=== PATIENT | female | born 1955 | race Caucasian/White ===

== ENCOUNTER 2016-06-26 11:00 | Day surgery (SDC) | payer MEDICARE ==
--- NOTE | 2016-06-23 07:54 | HP ---
DATE OF SURGERY: 06/24/2016 ADMISSION DIAGNOSIS: Inadequate access for chemotherapy. ANTICIPATED PROCEDURE: Port placement. 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 She is requiring access for chemotherapy and she presents for such. PAST MEDICAL HISTORY: ALLERGIES: LATEX. MEDICATIONS: Metoprolol, doxycycline, clonidine, methadone. PAST SURGICAL HISTORY: Cholecystectomy. SOCIAL HISTORY: Negative. FAMILY HISTORY: Negative. REVIEW OF SYSTEMS: Negative. PHYSICAL EXAMINATION: VITAL SIGNS: Normal. CHEST: Clear. COR: Regular. ABDOMEN: Healing abdominal incision. IMPRESSION: Gallbladder cancer. PLAN: Access for chemotherapy with Port-A-Cath.
[~2016-06-26 11:00] MED LIST: CEFAZOLIN 2 GM-D5W BAG** 50 ML IV ONE; Lactated Ringers 1,000 ML IV ONE; Lactated Ringers 1,000 ML IV SCH; XYLOCAINE 1% HCL 20 ML MDV ONE
[2016-06-26] MEDS ORDERED: Lactated Ringers 0 ML IV ONE (11:13)
[2016-06-26] MEDS ORDERED: CEFAZOLIN 2 GM-D5W BAG** 50 ML IV ONE (11:23)
--- NOTE | 2016-06-26 13:55 | XRAY ---
Indication: Port placement. Intraoperative fluoroscopy was provided for 2 seconds. 3 digital spot images submitted for interpretation demonstrates a left-sided Port-A-Cath with the tip projecting right of midline presumed in the SVC. Correlate with intraoperative findings/report.
[2016-06-26] MEDS ORDERED: Ketamine HCl 50 MG/ML IJ ONE (13:56)
[2016-06-26] MEDS ORDERED: DIPRIVAN 200 MG/20 ML IV ONE (13:56)
[2016-06-26 14:58] VITALS: BP 144/83; PULSE 57; O2SAT 97
--- NOTE | 2016-06-26 15:11 | OP ---
SURGERY DATE/TIME: 06/26/2016 1225 PREOPERATIVE DIAGNOSIS: Inadequate access for chemotherapy. POSTOPERATIVE DIAGNOSIS: Inadequate access for chemotherapy. PROCEDURE: Left subclavian - superior vena cava - atrial Port-A-Cath. SURGEON: Manpreet Carney M.D. ANESTHESIA: MAC. COMPLICATIONS: None. CONDITION: Stable. INDICATION: A 61 year-old requiring access. DESCRIPTION OF PROCEDURE: Routine prep and drape. MAC sedation provided. 0.25% Marcaine. The seeker needle was placed. Wire was placed. Catheter was tunneled. Port site fashioned. Port secured with 3-0 Prolene. Catheter 24 cm. Good aspiration low pressure venous blood. Flushed with heparinized saline, secured with 3-0 Prolene, 3-0 Vicryl, 4-0 Vicryl and Steri-Strips. The patient tolerated the procedure satisfactorily. Fluoroscopic images were satisfactory.
== END 2016-06-26 14:41 | disposition home or self-care (01) ==
LOC: SDC 11:00
PROVIDERS: ATTEND Surgery
PROC: 02HV33Z Insertion of Infusion Device into Superior Vena Cava, Percutaneous Approach (ICD-10-PCS; principal; 2016-06-26)
DX: Z95.828 Presence of other vascular implants and grafts (principal); C23 Malignant neoplasm of gallbladder
CPT/HCPCS: 00532; 77001; C1788; J0690; J1642; J2704

== ENCOUNTER 2016-09-25 17:54 | Inpatient (IN) | payer MEDICARE ==
[2016-09-25] MEDS: Toprol Xl 100 MG PO SCH (21:04)
[2016-09-25] MEDS: Catapres 0.1 MG PO SCH (21:04)
[2016-09-25] MEDS: Zanaflex 4 MG PO SCH (21:04)
[2016-09-25] MEDS: DOLOPHINE 10MG Tablet PO SCH (21:04)
[2016-09-25] MEDS: Ambien 10 MG PO SCH (21:04)
[2016-09-26] MEDS: ZOFRAN ODT 4 MG PO PRN ×2 (08:11→15:28)
[2016-09-26] MEDS: DOLOPHINE 10MG Tablet PO SCH ×3 (09:20→21:21)
[2016-09-26] MEDS: Prozac 20 MG PO SCH (09:20)
[2016-09-26] MEDS: Catapres 0.1 MG PO SCH ×2 (09:20→21:20)
[2016-09-26] MEDS: Toprol Xl 100 MG PO SCH ×2 (09:20→21:20)
[2016-09-26] MEDS: Zanaflex 4 MG PO SCH ×3 (09:20→21:20)
--- NOTE | 2016-09-26 18:10 | PCM.HP ---
History of Present Illness - Chief Complaint Chief Complaint: deconditioning r/t fall History of Present Illness: is a 61 year old female who was diagnosed with gallbladder cancer in Jun 2016. She had c ome to [facility] to get her gallbladder out and she was found to have cancer. Treated at the [facility] in [place] with radiation and chemotherapy. She did get some radiation morgan and on the 15th day of chemotherapy started having nausea and vomiting. She was in the hospital for 8 days and when she came home she got progressively weaker. She has previously been in [facility]. She had a fall and has been set back in her rehab, with increasing weakness ever since. She comes to [facility] for therapy in a swing bed. - Review of Systems Ears, Nose, & Throat: Other (slow speaking) Cardiac: Other (hx HTN) Abdominal/Gastrointestinal: Nausea (daily, starts in the morning.), Diarrhea (2 d ago) Musculoskeletal: Neck Pain (chronic; s/p 2 neck surgeries post traumatic fracture years ago; on disability) Skin: Skin Lesions (3 areas of radiation burn on abdomen. 1 area superior gluteal cleft.) All Other Systems: Reviewed and Negative Medications & Allergies Home Medications: Home Medication List Methadone HCl 10 mg [DOLOPHINE 10MG Tablet] 10 mg PO TID 06/24/16 [ History Confirmed 09/25/16] Metoprolol Succinate 100 mg [Toprol Xl 100 MG] 100 mg PO BID 06/24/16 [ History Confirmed 09/25/16] Oxycodone / APAP 10/325 mg [Oxycodone-Acetaminophen 10-325] 1 tab PO QID 06/24/16 [History Confirmed 09/25/16] Zolpidem Tartrate [Ambien] 10 mg PO HS 06/24/16 [History Confirmed 09/25/16] Tizanidine HCl 4 mg PO TID 06/26/16 [History Confirmed 09/25/16] Clonidine HCl 0.1 mg PO BID 09/25/16 [History Confirmed 09/25/16] Fluoxetine HCl 20 mg PO DAILY 09/25/16 [History Confirmed 09/25/16] Ondansetron HCl [Zofran] 4 mg PO Q6HPRN PRN 09/25/16 [History Confirmed 09/25/16 ] Allergies/Adverse Reactions: Allergies Allergy/AdvReac Type Severity Reaction Status Date / Time bee pollen Allergy Verified 09/25/16 18:20 latex Allergy Verified 09/25/16 18:20 - Past Medical History Past Medical History: Yes Neurological History: No Pertinent History ENT History: No Pertinent History Cardiac History: Hypertension Respiratory History: No Pertinent History Endocrine Medical History: No Pertinent History Musculoskelatal History: No Pertinent History GI Medical History: Gallbladder Disease, Other History: No Pertinent History Pyscho-Social History: No Pertinent History Reproductive Disorders: Endometriosis Comment: chronic neck pain; gallbladder CA - Female History Are you now?: No - Past Surgical History Past Surgical History: Yes Neuro Surgical History: No Pertinent History Cardiac History: No Pertinent History Respiratory Surgery: No Pertinent History GI Surgical History: Cholecystectomy, Other Genitourinary Surgical Hx: No Pertinent History Musculskeletal Surgical Hx: Orthopedic Surgery Female Surgical History: Hysterectomy Other Surgical History: neck surgery x 2, Dx of gall bladder cancer May 2016 - Social History Smoking Status: Never smoker Exposure to second hand smoke: No Alcohol: None Drug Use: none - Physical Exam Vital Signs: Vital Signs - 24 hr Temp Pulse Resp BP Pulse Ox 09/26/16 16:00 98.5 F 54 L 17 182/86 95 09/26/16 11:03 60 18 95 09/26/16 07:53 97.5 F 56 L 16 180/79 94 L 09/25/16 20:00 98.2 F 60 20 166/84 94 L 09/25/16 18:16 98.2 F 60 20 166/84 94 L General Appearance: no apparent distress Neurologic Exam: alert, oriented x 3, cooperative, dysarthria (mild) Eye Exam: eyes nml inspection Neck Exam: normal inspection, non-tender, No lymphadenopathy Respiratory Exam: normal breath sounds, lungs clear, No crackles/rales, No rhonchi, No wheezing Cardiovascular Exam: regular rate/rhythm, normal heart sounds, No murmur Gastrointestinal/Abdomen Exam: soft, normal bowel sounds, other (3 square areas of skin, largest approx 3x3 cm, with dark discoloration and some peeling skin), No tenderness Back Exam: normal inspection Extremity Exam: pedal edema (trace LE edema) Skin Exam: warm, dry Results - Other Procedures and Tests Respiratory Therapy 04/21/17 11:03 Incentive Spirometry Assessmen TID Assessment/Plan (1) Muscular deconditioning Current Visit: Yes Status: Acute Assessment & Plan: Here for therapy. Code(s): R29.898 - OTH SYMPTOMS AND SIGNS INVOLVING THE MUSCULOSKELETAL SYSTEM (2) Leg edema Current Visit: Yes Status: Acute Assessment & Plan: Had lasix x 1 yesterday. Very mild today. Will observe. Code(s): R60.0 - LOCALIZED EDEMA (3) Nausea and vomiting Current Visit: No Status: Chronic Assessment & Plan: will give scheduled zofran q8h for the next week and see if it helps. Code(s): R11.2 - NAUSEA WITH VOMITING, UNSPECIFIED (4) Chronic neck pain Current Visit: No Status: Chronic Assessment & Plan: sees Dr. Gallo for pain management. Will continue meds here. Code(s): M54.2 - CERVICALGIA; G89.29 - OTHER CHRONIC PAIN
[2016-09-26] MEDS: OXYCODONE-ACETAMINOPHEN 10-325 PO PRN (21:20)
[2016-09-26] MEDS: Ambien 10 MG PO SCH (21:21)
[2016-09-27] MEDS: OXYCODONE-ACETAMINOPHEN 10-325 PO PRN (08:50)
[2016-09-27] MEDS: Zanaflex 4 MG PO SCH ×3 (08:50→21:40)
[2016-09-27] MEDS: Prozac 20 MG PO SCH (08:52)
[2016-09-27] MEDS: Catapres 0.1 MG PO SCH ×2 (08:52→21:40)
[2016-09-27] MEDS: DOLOPHINE 10MG Tablet PO SCH ×3 (08:52→21:40)
[2016-09-27] MEDS: Toprol Xl 100 MG PO SCH ×2 (08:53→21:40)
[2016-09-27 10:24] LABS: Mean Cell Volume 89.2 fl (78-100); Mean Corpuscular Hemoglobin 29.9 pg (26-32); Mean Platelet Volume 9.9 fl (6-9.5); Platelet Count 98 K/mm3 (150-450); Red Blood Count 4.08 M/mm3 (4.1-5.4); Red Cell Distribution Width 14.8 % (11.5-14.0)
[2016-09-27 10:35] LABS: ALBUMIN 2.6 g/dL (3.4-5.0); ALKALINE PHOSPHATASE 105 U/L (46-116); ANION GAP 12.8 MEQ/L (5-15); BILIRUBIN,TOTAL 1.6 mg/dL (0.2-1.0); BLOOD UREA NITROGEN 6 mg/dL (9-20); CHLORIDE 105 mEq/L (98-107); Carbon Dioxide 27.3 mEq/L (21-32); Glucose 126 MG/DL (70-110); Potassium 3.3 mEq/L (3.5-5.1); SGOT/AST 41 U/L (15-37); SGPT/ALT 19 U/L (12-78); SODIUM 142 mEq/L (136-145)
[2016-09-27 11:39] LABS: Eosinophil 2 % (0.00-3.0); Platelet Estimate DECREASED (NORMAL); Total Cells Counted 100; Toxic Granulation 1+
[2016-09-27 11:40] LABS: ANISOCYTOSIS 1+
[2016-09-27] MEDS: Ambien 10 MG PO SCH (21:40)
[2016-09-28] MEDS: Zanaflex 4 MG PO SCH ×3 (10:15→22:17)
[2016-09-28] MEDS: Prozac 20 MG PO SCH (10:15)
[2016-09-28] MEDS: Toprol Xl 100 MG PO SCH ×2 (10:16→22:17)
[2016-09-28] MEDS: Catapres 0.1 MG PO SCH ×2 (10:16→22:17)
[2016-09-28] MEDS: DOLOPHINE 10MG Tablet PO SCH ×3 (10:16→22:17)
[2016-09-28] MEDS: ZOFRAN ODT 4 MG PO PRN (14:21)
[2016-09-28] MEDS: Ambien 10 MG PO SCH (22:17)
[2016-09-28] MEDS: Colace 100 MG PO SCH (22:17)
[2016-09-29 05:39] LABS: Mean Cell Volume 90.2 fl (78-100); Mean Platelet Volume 9.8 fl (6-9.5); Platelet Count 87 K/mm3 (150-450); Red Blood Count 3.78 M/mm3 (4.1-5.4); White Blood Count 5.4 K/mm3 (4.0-10.5)
[2016-09-29 05:53] LABS: Mean Corpuscular Hemoglobin 30.1 pg (26-32)
[2016-09-29 06:00] LABS: ALBUMIN 2.3 g/dL (3.4-5.0); ALKALINE PHOSPHATASE 96 U/L (46-116); ANION GAP 11.1 MEQ/L (5-15); BILIRUBIN,TOTAL 1.9 mg/dL (0.2-1.0); BLOOD UREA NITROGEN 7 mg/dL (9-20); CHLORIDE 105 mEq/L (98-107); Carbon Dioxide 27.6 mEq/L (21-32); Glucose 114 MG/DL (70-110); Potassium 3.5 mEq/L (3.5-5.1); SGOT/AST 41 U/L (15-37); SGPT/ALT 15 U/L (12-78); SODIUM 140 mEq/L (136-145); Total Protein 5.4 gm/dL (6.4-8.2)
[2016-09-29 06:13] LABS: ANISOCYTOSIS 1+; Poikilocytosis 1+; Total Cells Counted 100
[2016-09-29 06:14] LABS: Platelet Estimate NORMAL (NORMAL); Polychromasia 1+
[2016-09-29] MEDS: OXYCODONE-ACETAMINOPHEN 10-325 PO PRN ×2 (07:45→19:42)
--- NOTE | 2016-09-29 08:05 | PCM.NOTE ---
Date and Time: 09/29/16 08 Subjective Assessment: Not eating well per . Sleeping well. He states she can use her hands better since admission. She worked with PT yesterday for about an hour. Unable to tolerate LUIS M hose. - Review of Systems Constitutional: No Fever Abdominal/Gastrointestinal: Appetite Changes Objective Exam General Appearance: no apparent distress Neurologic Exam: alert, oriented x 3, cooperative, other (slow speech as on previous exam) Skin Exam: normal color, warm, dry Respiratory Exam: normal breath sounds, lungs clear, No crackles/rales, No rhonchi, No wheezing Cardiovascular Exam: regular rate/rhythm, normal heart sounds, No murmur Gastrointestinal/Abdomen Exam: soft, No tenderness Extremity Exam: pedal edema (1+ pretibial edema bilat) Back Exam: normal inspection OBJECTIVE DATA Vital Signs: Vital Signs - 24 hr Temp Pulse Resp BP Pulse Ox 09/29/16 06:54 93 L 09/28/16 19:50 58 L 15 96 09/28/16 19:46 98.9 F 63 14 113/53 95 09/28/16 16:36 93 L 09/28/16 08:11 94 L Pain Assessment - Last Documented Pain Intensity 9 Pain Scale Used 0-10 Pain Scale Intake and Output: Intake & Output 09/26/16 09/27/16 09/28/16 09/29/16 11:59 11:59 11:59 11:59 Intake Total 300 1640 320 240 Output Total 600 200 Balance -300 1440 320 240 Weight 95.935 kg 95.935 kg Lab Results: Lab Results-Last 24 Hours 09/29/16 09/29/16 09/29/16 Range/Units 05:14 05:14 05:14 WBC 5.4 (4.0-10.5) K/mm3 RBC 3.78 L (4.1-5.4) M/mm3 Hgb 11.4 L (12.0-16.0) gm/dl Hct 34.1 L (35-47) % MCV 90.2 (78-100) fl MCH 30.1 (26-32) pg MCHC 33.4 (32-36) g/dl RDW 15.0 H (11.5-14.0) % Plt Count 87 L (150-450) K/mm3 MPV 9.8 H (6-9.5) fl Segmented Neutrophils 81 H (36.0-66.0) % Lymphocytes (Manual) 17 L (24-44) % Monocytes (Manual) 2 (0.0-12.0) % Platelet Estimate NORMAL (NORMAL) Polychromasia 1+ Poikilocytosis 1+ Anisocytosis 1+ Sodium 140 (136-145) mEq/L Potassium 3.5 (3.5-5.1) mEq/L Chloride 105 (98-107) mEq/L Carbon Dioxide 27.6 (21-32) mEq/L Anion Gap 11.1 (5-15) MEQ/L BUN 7 L (9-20) mg/dL Creatinine 0.72 (0.55-1.30) mg/dl Estimated GFR > 60 ML/MIN Glucose 114 H (70-110) MG/DL Hemoglobin A1c 5.7 (4.5-6.2) Calcium 8.2 L (8.5-10.1) mg/dL Total Bilirubin 1.9 H (0.2-1.0) mg/dL AST 41 H (15-37) U/L ALT 15 (12-78) U/L Alkaline Phosphatase 96 (46-116) U/L Serum Total Protein 5.4 L (6.4-8.2) gm/dL Albumin 2.3 L (3.4-5.0) g/dL Assessment/Plan (1) Muscular deconditioning Current Visit: Yes Status: Acute Assessment & Plan: Started PT yesterday. Code(s): R29.898 - OTH SYMPTOMS AND SIGNS INVOLVING THE MUSCULOSKELETAL SYSTEM (2) Leg edema Current Visit: Yes Status: Acute Qualifiers: Laterality: bilateral Qualified Code(s): R60.0 - Localized edema Assessment & Plan: lasix as needed. Code(s): R60.0 - LOCALIZED EDEMA (3) Nausea and vomiting Current Visit: No Status: Chronic Assessment & Plan: no complaint of this morning. On zofran q6h prn. Code(s): R11.2 - NAUSEA WITH VOMITING, UNSPECIFIED (4) Chronic neck pain Current Visit: No Status: Chronic Code(s): M54.2 - CERVICALGIA; G89.29 - OTHER CHRONIC PAIN (5) Total bilirubin, elevated Current Visit: Yes Status: Acute Assessment & Plan: 1.6 on Ruben and 1.9 today. I will notify her oncologist, Dr. Marte. Code(s): R17 - UNSPECIFIED JAUNDICE (6) DVT prophylaxis Current Visit: Yes Status: Acute Code(s): [id number] - (7) Gallbladder cancer Current Visit: Yes Status: Chronic Assessment & Plan: Sees specialists at [facility]. Done with her current treatment regimen.
[2016-09-29] MEDS: Prozac 20 MG PO SCH (09:12)
[2016-09-29] MEDS: DOLOPHINE 10MG Tablet PO SCH ×3 (09:12→22:07)
[2016-09-29] MEDS: Zanaflex 4 MG PO SCH ×3 (09:13→22:07)
[2016-09-29] MEDS: ENOXAPARIN SODIUM SQ SCH (09:16)
[2016-09-29] MEDS: Catapres 0.1 MG PO SCH ×2 (09:59→22:07)
[2016-09-29] MEDS: Toprol Xl 100 MG PO SCH ×2 (10:00→22:07)
[2016-09-29] MEDS: Colace 100 MG PO SCH (22:07)
[2016-09-29] MEDS: Ambien 10 MG PO SCH (22:07)
[2016-09-30 05:51] LABS: Mean Cell Volume 90.9 fl (78-100); Mean Platelet Volume 10.1 fl (6-9.5); Platelet Count 85 K/mm3 (150-450); Red Blood Count 3.73 M/mm3 (4.1-5.4); Red Cell Distribution Width 15.1 % (11.5-14.0); White Blood Count 3.5 K/mm3 (4.0-10.5)
[2016-09-30 06:04] LABS: Mean Corpuscular Hemoglobin 29.7 pg (26-32)
[2016-09-30 06:05] LABS: ALBUMIN 2.2 g/dL (3.4-5.0); ALKALINE PHOSPHATASE 92 U/L (46-116); ANION GAP 8.4 MEQ/L (5-15); BILIRUBIN,TOTAL 1.3 mg/dL (0.2-1.0); BLOOD UREA NITROGEN 6 mg/dL (9-20); CHLORIDE 108 mEq/L (98-107); Carbon Dioxide 29.3 mEq/L (21-32); Glucose 109 MG/DL (70-110); Potassium 3.6 mEq/L (3.5-5.1); SGOT/AST 41 U/L (15-37); SGPT/ALT 15 U/L (12-78); SODIUM 142 mEq/L (136-145); Total Protein 5.4 gm/dL (6.4-8.2)
[2016-09-30] MEDS: OXYCODONE-ACETAMINOPHEN 10-325 PO PRN ×3 (06:05→20:35)
[2016-09-30] MEDS: Toprol Xl 100 MG PO SCH ×2 (09:30→21:16)
[2016-09-30] MEDS: Prozac 20 MG PO SCH (09:30)
[2016-09-30] MEDS: DOLOPHINE 10MG Tablet PO SCH ×2 (09:30→15:17)
[2016-09-30] MEDS: Zanaflex 4 MG PO SCH ×3 (09:30→21:16)
[2016-09-30] MEDS: ENOXAPARIN SODIUM SQ SCH (09:31)
[2016-09-30] MEDS: Catapres 0.1 MG PO SCH ×2 (09:31→21:16)
[2016-09-30 10:38] LABS: Total Cells Counted 100
[2016-09-30 10:39] LABS: ANISOCYTOSIS 1+; Platelet Estimate NORMAL (NORMAL); Poikilocytosis 1+; Polychromasia 1+
[2016-09-30] MEDS: Ambien 10 MG PO SCH (21:16)
[2016-09-30] MEDS: Colace 100 MG PO SCH (21:16)
[2016-10-01] MEDS: Catapres 0.1 MG PO SCH ×2 (08:51→21:40)
[2016-10-01] MEDS: ENOXAPARIN SODIUM SQ SCH (08:51)
[2016-10-01] MEDS: Zanaflex 4 MG PO SCH ×3 (08:51→21:40)
[2016-10-01] MEDS: Prozac 20 MG PO SCH (08:51)
[2016-10-01] MEDS: Toprol Xl 100 MG PO SCH ×2 (08:51→21:40)
[2016-10-01] MEDS: DOLOPHINE 10MG Tablet PO SCH ×3 (09:51→21:41)
--- NOTE | 2016-10-01 10:20 | PCM.NOTE ---
Date and Time: 10/01/16 1015 Subjective Assessment: She is still feeling very weak. Attila po but still eating less than usual. Notes she has a hard time grasping and holding things as well. - Review of Systems Constitutional: Weakness, No Fever Objective Exam General Appearance: no apparent distress Neurologic Exam: alert, oriented x 3, cooperative, other (slow speech as usual) Skin Exam: normal color, warm, dry Respiratory Exam: normal breath sounds, lungs clear, No crackles/rales, No rhonchi, No wheezing Cardiovascular Exam: regular rate/rhythm, normal heart sounds, No murmur Extremity Exam: pedal edema (1+ pretibial edema bilat) Back Exam: normal inspection OBJECTIVE DATA Vital Signs: Vital Signs - 24 hr Temp Pulse Resp BP Pulse Ox 10/01/16 07:52 98.6 F 60 18 141/67 91 L 10/01/16 07:29 66 16 95 09/30/16 22:25 69 16 93 L 09/30/16 20:23 98.2 F 58 L 14 134/93 92 L Pain Assessment - Last Documented Pain Intensity 6 Pain Scale Used 0-10 Pain Scale Intake and Output: Intake & Output 09/28/16 09/29/16 09/30/16 10/01/16 11:59 11:59 11:59 11:59 Intake Total 320 240 560 760 Balance 320 240 560 760 Lab Results: Lab Results-Last 24 Hours 09/30/16 09/30/16 Range/Units 05:37 20:25 WBC 3.5 L (4.0-10.5) K/mm3 RBC 3.73 L (4.1-5.4) M/mm3 Hgb 11.1 L (12.0-16.0) gm/dl Hct 33.9 L (35-47) % MCV 90.9 (78-100) fl MCH 29.7 (26-32) pg MCHC 32.7 (32-36) g/dl RDW 15.1 H (11.5-14.0) % Plt Count 85 L (150-450) K/mm3 MPV 10.1 H (6-9.5) fl Segmented Neutrophils 77 H (36.0-66.0) % Lymphocytes (Manual) 18 L (24-44) % Monocytes (Manual) 5 (0.0-12.0) % Platelet Estimate NORMAL (NORMAL) Polychromasia 1+ Poikilocytosis 1+ Anisocytosis 1+ Ammonia 69 H (11-32) MMOL/l Assessment/Plan (1) Muscular deconditioning Current Visit: Yes Status: Acute Assessment & Plan: post chemotherapy. Unsure what her degree of recovery will ultimately be but I think her rehab potential is fair to good and certainly we won't know for sure for several months or more. Code(s): R29.898 - OTH SYMPTOMS AND SIGNS INVOLVING THE MUSCULOSKELETAL SYSTEM (2) Leg edema Current Visit: Yes Status: Chronic Qualifiers: Laterality: bilateral Qualified Code(s): R60.0 - Localized edema Code(s): R60.0 - LOCALIZED EDEMA (3) Nausea and vomiting Current Visit: No Status: Resolved Code(s): R11.2 - NAUSEA WITH VOMITING, UNSPECIFIED (4) Chronic neck pain Current Visit: No Status: Chronic Code(s): M54.2 - CERVICALGIA; G89.29 - OTHER CHRONIC PAIN (5) Total bilirubin, elevated Current Visit: Yes Status: Acute Assessment & Plan: improved today. Will check her PT/INR and recheck ammonia in the morning. I spoke with her oncologist yesterday, he would plan at this point to do a liver ultrasound outpatient. Code(s): R17 - UNSPECIFIED JAUNDICE (6) Pancytopenia Current Visit: Yes Status: Acute Assessment & Plan: New yesterday. She has been thrombocytopenic and mildly anemic since admission. recheck in the morning. Code(s): D61.818 - OTHER PANCYTOPENIA (7) DVT prophylaxis Current Visit: Yes Status: Acute Code(s): [id number] - (8) Gallbladder cancer Current Visit: Yes Status: Chronic
[2016-10-01] MEDS: LACTULOSE 20 GM/30ML UD CUP PO SCH ×2 (10:52→21:41)
[2016-10-01] MEDS: ZOFRAN ODT 4 MG PO PRN (13:45)
[2016-10-01] MEDS: Mylicon 80MG PO PRN (16:07)
[2016-10-01] MEDS: Colace 100 MG PO SCH (21:40)
[2016-10-01] MEDS: Ambien 10 MG PO SCH (21:41)
[2016-10-02 06:10] LABS: BASOPHIL % 0.5 % (0.0-0.4); Eosinophil % 2.6 % (0.00-5.0); Granulocytes % 67.2 % (36.0-66.0); Lymphocytes % 16.8 % (24.0-44.0); Mean Cell Volume 91.5 fl (78-100); Mean Corpuscular Hemoglobin 30.2 pg (26-32); Mean Platelet Volume 9.9 fl (6-9.5); Monocytes % 12.9 % (0.0-12.0); Platelet Count 101 K/mm3 (150-450); Red Blood Count 3.64 M/mm3 (4.1-5.4); White Blood Count 3.9 K/mm3 (4.0-10.5)
[2016-10-02 06:26] LABS: ALBUMIN 2.2 g/dL (3.4-5.0); ALKALINE PHOSPHATASE 102 U/L (46-116); ANION GAP 8.6 MEQ/L (5-15); BILIRUBIN,TOTAL 1.3 mg/dL (0.2-1.0); BLOOD UREA NITROGEN 6 mg/dL (9-20); CHLORIDE 106 mEq/L (98-107); Glucose 98 MG/DL (70-110); Potassium 3.6 mEq/L (3.5-5.1); SGOT/AST 45 U/L (15-37); SGPT/ALT 16 U/L (12-78); SODIUM 140 mEq/L (136-145); Total Protein 5.5 gm/dL (6.4-8.2)
[2016-10-02 06:38] LABS: INR 1.59 (0.8-3.0); PROTIME 17.6 SECONDS (9.95-12.35)
[2016-10-02] MEDS: OXYCODONE-ACETAMINOPHEN 10-325 PO PRN ×2 (07:50→20:44)
[2016-10-02] MEDS: ZOFRAN ODT 4 MG PO PRN (07:57)
[2016-10-02] MEDS: Prozac 20 MG PO SCH (10:08)
[2016-10-02] MEDS: DOLOPHINE 10MG Tablet PO SCH ×3 (10:09→20:39)
[2016-10-02] MEDS: LACTULOSE 20 GM/30ML UD CUP PO SCH ×2 (10:09→20:36)
[2016-10-02] MEDS: ENOXAPARIN SODIUM SQ SCH (10:09)
[2016-10-02] MEDS: Zanaflex 4 MG PO SCH ×3 (10:09→20:38)
[2016-10-02] MEDS: Mylicon 80MG PO PRN ×2 (10:15→14:49)
[2016-10-02] MEDS: Catapres 0.1 MG PO SCH ×2 (10:22→20:44)
[2016-10-02] MEDS: Toprol Xl 100 MG PO SCH ×2 (10:22→20:39)
[2016-10-02] MEDS: Colace 100 MG PO SCH (20:39)
[2016-10-02] MEDS: Ambien 10 MG PO SCH (20:39)
[2016-10-03] MEDS: ZOFRAN ODT 4 MG PO PRN (07:43)
[2016-10-03] MEDS: Mylicon 80MG PO PRN (08:05)
[2016-10-03] MEDS: Zanaflex 4 MG PO SCH ×3 (10:36→22:10)
[2016-10-03] MEDS: Prozac 20 MG PO SCH (10:37)
[2016-10-03] MEDS: Toprol Xl 100 MG PO SCH ×2 (10:37→22:10)
[2016-10-03] MEDS: DOLOPHINE 10MG Tablet PO SCH ×3 (10:37→22:09)
[2016-10-03] MEDS: ENOXAPARIN SODIUM SQ SCH (10:37)
[2016-10-03] MEDS: Catapres 0.1 MG PO SCH ×2 (10:37→22:09)
[2016-10-03] MEDS: LACTULOSE 20 GM/30ML UD CUP PO SCH ×2 (13:20→22:09)
[2016-10-03] MEDS: OXYCODONE-ACETAMINOPHEN 10-325 PO PRN (17:21)
[2016-10-03] MEDS: Ambien 10 MG PO SCH (22:09)
[2016-10-03] MEDS: Colace 100 MG PO SCH (22:09)
[2016-10-04] MEDS: ZOFRAN ODT 4 MG PO PRN ×2 (08:08→15:12)
[2016-10-04] MEDS: Zanaflex 4 MG PO SCH ×3 (09:12→22:01)
[2016-10-04] MEDS: DOLOPHINE 10MG Tablet PO SCH ×3 (09:12→22:00)
[2016-10-04] MEDS: Catapres 0.1 MG PO SCH ×2 (09:12→22:01)
[2016-10-04] MEDS: ENOXAPARIN SODIUM SQ SCH (09:12)
[2016-10-04] MEDS: Toprol Xl 100 MG PO SCH ×2 (09:12→22:00)
[2016-10-04] MEDS: LACTULOSE 20 GM/30ML UD CUP PO SCH ×2 (09:12→22:01)
[2016-10-04] MEDS: Prozac 20 MG PO SCH (09:12)
[2016-10-04] MEDS: Mylicon 80MG PO PRN (17:21)
[2016-10-04] MEDS: PATIENT OWN MEDICATION PO PRN (17:22)
[2016-10-04] MEDS: OXYCODONE-ACETAMINOPHEN 10-325 PO PRN (19:48)
[2016-10-04] MEDS: Colace 100 MG PO SCH (22:01)
[2016-10-04] MEDS: Ambien 10 MG PO SCH (22:01)
[2016-10-05] MEDS: ZOFRAN ODT 4 MG PO PRN (08:08)
[2016-10-05] MEDS: OXYCODONE-ACETAMINOPHEN 10-325 PO PRN (08:09)
[2016-10-05] MEDS: Catapres 0.1 MG PO SCH ×2 (09:31→22:35)
[2016-10-05] MEDS: ENOXAPARIN SODIUM SQ SCH (09:31)
[2016-10-05] MEDS: DOLOPHINE 10MG Tablet PO SCH ×3 (09:31→22:36)
[2016-10-05] MEDS: LACTULOSE 20 GM/30ML UD CUP PO SCH ×2 (09:31→22:28)
[2016-10-05] MEDS: Prozac 20 MG PO SCH (09:31)
[2016-10-05] MEDS: Toprol Xl 100 MG PO SCH ×2 (09:31→22:35)
[2016-10-05] MEDS: Zanaflex 4 MG PO SCH ×3 (09:36→22:36)
[2016-10-05] MEDS: PATIENT OWN MEDICATION PO PRN (15:16)
[2016-10-05] MEDS: Ambien 10 MG PO SCH (22:35)
[2016-10-05] MEDS: Colace 100 MG PO SCH (22:36)
[2016-10-06] MEDS: ZOFRAN ODT 4 MG PO PRN (08:06)
--- NOTE | 2016-10-06 08:43 | PCM.NOTE ---
Date and Time: 10/06/16 0840 Subjective Assessment: Still c/o a.m. vomiting, worse for the past 3 days. Attila po otherwise. She is walking better. - Review of Systems Constitutional: No Fever Abdominal/Gastrointestinal: Nausea, Vomiting Objective Exam General Appearance: no apparent distress Neurologic Exam: alert, oriented x 3, cooperative Skin Exam: normal color, warm, dry Respiratory Exam: normal breath sounds, lungs clear, No crackles/rales, No rhonchi, No wheezing Cardiovascular Exam: regular rate/rhythm, normal heart sounds, No murmur Extremity Exam: pedal edema (trace LE edema bilat) Back Exam: normal inspection OBJECTIVE DATA Vital Signs: Vital Signs - 24 hr Temp Pulse Resp BP Pulse Ox 10/06/16 07:40 97.8 F 56 L 20 129/61 95 10/05/16 20:00 98.0 F 54 L 17 147/67 92 L Pain Assessment - Last Documented Pain Intensity 10 [facility] Intake and Output: Intake & Output 10/03/16 10/04/16 10/05/16 10/06/16 11:59 11:59 11:59 11:59 Intake Total 680 420 580 920 Balance 680 420 580 920 Assessment/Plan (1) Muscular deconditioning Current Visit: Yes Status: Acute Assessment & Plan: She is improving, still needs to work on walking, balance, senior accounting associate and upper extremity strength with a goal of being able to perform ADLs at home independently. This may take several weeks to months, and the extent of her full recovery is unknown at this time. Would benefit from senior living rehab. Code(s): R29.898 - OTH SYMPTOMS AND SIGNS INVOLVING THE MUSCULOSKELETAL SYSTEM (2) Leg edema Current Visit: Yes Status: Chronic Qualifiers: Laterality: bilateral Qualified Code(s): R60.0 - Localized edema Code(s): R60.0 - LOCALIZED EDEMA (3) Nausea and vomiting Current Visit: No Status: Resolved Qualifiers: Vomiting type: cyclical vomiting Assessment & Plan: late effect of chemotherapy. Try zantac in the p.m. Code(s): R11.2 - NAUSEA WITH VOMITING, UNSPECIFIED (4) Chronic neck pain Current Visit: No Status: Chronic Code(s): M54.2 - CERVICALGIA; G89.29 - OTHER CHRONIC PAIN (5) Total bilirubin, elevated Current Visit: Yes Status: Acute Assessment & Plan: recheck today Code(s): R17 - UNSPECIFIED JAUNDICE (6) Pancytopenia Current Visit: Yes Status: Acute Assessment & Plan: recheck today Code(s): D61.818 - OTHER PANCYTOPENIA (7) DVT prophylaxis Current Visit: Yes Status: Acute Code(s): [id number] - (8) Gallbladder cancer Current Visit: Yes Status: Chronic
[2016-10-06] MEDS: Toprol Xl 100 MG PO SCH ×2 (08:54→21:55)
[2016-10-06] MEDS: Zanaflex 4 MG PO SCH ×3 (08:54→21:55)
[2016-10-06] MEDS: Prozac 20 MG PO SCH (08:54)
[2016-10-06] MEDS: LACTULOSE 20 GM/30ML UD CUP PO SCH ×2 (08:54→21:57)
[2016-10-06] MEDS: Catapres 0.1 MG PO SCH ×2 (08:54→21:56)
[2016-10-06] MEDS: ENOXAPARIN SODIUM SQ SCH (08:54)
[2016-10-06 09:02] LABS: Mean Cell Volume 92.7 fl (78-100); Mean Corpuscular Hemoglobin 30.3 pg (26-32); Mean Platelet Volume 9.8 fl (6-9.5); Platelet Count 96 K/mm3 (150-450); Red Blood Count 3.56 M/mm3 (4.1-5.4); Red Cell Distribution Width 14.9 % (11.5-14.0)
[2016-10-06 09:36] LABS: ALBUMIN 2.2 g/dL (3.4-5.0); ALKALINE PHOSPHATASE 108 U/L (46-116); ANION GAP 11.7 MEQ/L (5-15); BILIRUBIN,TOTAL 0.9 mg/dL (0.2-1.0); BLOOD UREA NITROGEN 5 mg/dL (9-20); CHLORIDE 106 mEq/L (98-107); Carbon Dioxide 26.7 mEq/L (21-32); Glucose 104 MG/DL (70-110); Potassium 3.5 mEq/L (3.5-5.1); SGOT/AST 47 U/L (15-37); SGPT/ALT 19 U/L (12-78); SODIUM 141 mEq/L (136-145); Total Protein 5.6 gm/dL (6.4-8.2)
[2016-10-06 10:16] LABS: BAND 2 % (0.0-2.0); Basophil 1 % (0.0-1.0); Eosinophil 2 % (0.00-3.0); Total Cells Counted 100
[2016-10-06 10:26] LABS: ANISOCYTOSIS 1+
[2016-10-06 10:27] LABS: Platelet Estimate DECREASED (NORMAL)
[2016-10-06] MEDS: Protonix 20MG Tablet PO SCH (10:43)
[2016-10-06] MEDS: DOLOPHINE 10MG Tablet PO SCH ×3 (10:43→21:55)
[2016-10-06] MEDS: Mylicon 80MG PO PRN (14:15)
[2016-10-06] MEDS: Colace 100 MG PO SCH (21:55)
[2016-10-06] MEDS: Ambien 10 MG PO SCH (21:56)
[2016-10-07 06:02] LABS: Mean Cell Volume 92.8 fl (78-100); Mean Corpuscular Hemoglobin 30.7 pg (26-32); Mean Platelet Volume 10.7 fl (6-9.5); Platelet Count 97 K/mm3 (150-450); Red Blood Count 3.48 M/mm3 (4.1-5.4); Red Cell Distribution Width 14.9 % (11.5-14.0)
[2016-10-07 06:11] LABS: ALBUMIN 2.2 g/dL (3.4-5.0); ALKALINE PHOSPHATASE 111 U/L (46-116); ANION GAP 10.7 MEQ/L (5-15); BILIRUBIN,TOTAL 0.9 mg/dL (0.2-1.0); BLOOD UREA NITROGEN 7 mg/dL (9-20); CHLORIDE 106 mEq/L (98-107); Carbon Dioxide 27.7 mEq/L (21-32); Glucose 97 MG/DL (70-110); Potassium 3.5 mEq/L (3.5-5.1); SGOT/AST 53 U/L (15-37); SGPT/ALT 19 U/L (12-78); SODIUM 141 mEq/L (136-145); Total Protein 5.6 gm/dL (6.4-8.2)
[2016-10-07 06:14] LABS: White Blood Count 1.7 K/mm3 (4.0-10.5)
[2016-10-07 07:10] LABS: ANISOCYTOSIS 1+; ATYPICAL LYMPHS 1 %; Eosinophil 5 % (0.00-3.0); Total Cells Counted 100; Toxic Granulation 1+
[2016-10-07 07:11] LABS: Platelet Estimate NORMAL (NORMAL)
[2016-10-07] MEDS: ZOFRAN ODT 4 MG PO PRN (07:39)
--- NOTE | 2016-10-07 08:42 | PCM.NOTE ---
Date and Time: 10/07/16837 Subjective Assessment: Still having a.m. vomiting. She is walking better but still unable to feed herself due to poor medicare contact specialist strength - has improved somewhat but still needs assistance (this per ). - Review of Systems Constitutional: No Fever Cardiac: Edema Objective Exam General Appearance: no apparent distress, other (slurred speech as usual) Neurologic Exam: alert, oriented x 3, cooperative Skin Exam: normal color, warm, dry Respiratory Exam: No respiratory distress Extremity Exam: pedal edema (1+ pretibial edema bilat) OBJECTIVE DATA Vital Signs: Vital Signs - 24 hr Temp Pulse Resp BP Pulse Ox 10/07/16 07:31 98.2 F 55 L 18 134/68 95 10/06/16 20:00 97.9 F 54 L 17 128/61 94 L Pain Assessment - Last Documented Pain Intensity 10 Pain Scale Used 0-10 Pain Scale Intake and Output: Intake & Output 10/04/16 10/05/16 10/06/16 10/07/16 11:59 11:59 11:59 11:59 Intake Total 420 580 920 640 Balance 420 580 920 640 Lab Results: Lab Results-Last 24 Hours 10/06/16 10/06/16 10/07/16 Range/Units 08:55 08:55 05:30 WBC 2.0 L 1.7 L* (4.0-10.5) K/mm3 RBC 3.56 L 3.48 L (4.1-5.4) M/mm3 Hgb 10.8 L 10.7 L (12.0-16.0) gm/dl Hct 33.0 L 32.3 L (35-47) % MCV 92.7 92.8 (78-100) fl MCH 30.3 30.7 (26-32) pg MCHC 32.7 33.1 (32-36) g/dl RDW 14.9 H 14.9 H (11.5-14.0) % Plt Count 96 L 97 L (150-450) K/mm3 MPV 9.8 H 10.7 H (6-9.5) fl Segmented Neutrophils 71 H 58 (36.0-66.0) % Band Neutrophils 2 (0.0-2.0) % Lymphocytes (Manual) 16 L 22 L (24-44) % Monocytes (Manual) 8 14 H (0.0-12.0) % Eosinophils (Manual) 2 5 H (0.00-3.0) % Basophils (Manual) 1 (0.0-1.0) % Differential Comment ABNORMAL ABNORMAL Atypical Lymphocytes 1 % Toxic Granulation 1+ Platelet Estimate DECREASED NORMAL (NORMAL) Anisocytosis 1+ 1+ Smear Path Review Pending Sodium 141 (136-145) mEq/L Potassium 3.5 (3.5-5.1) mEq/L Chloride 106 (98-107) mEq/L Carbon Dioxide 26.7 (21-32) mEq/L Anion Gap 11.7 (5-15) MEQ/L BUN 5 L (9-20) mg/dL Creatinine 0.54 L (0.55-1.30) mg/dl Estimated GFR > 60 ML/MIN Glucose 104 (70-110) MG/DL Calcium 8.2 L (8.5-10.1) mg/dL Total Bilirubin 0.9 (0.2-1.0) mg/dL AST 47 H (15-37) U/L ALT 19 (12-78) U/L Alkaline Phosphatase 108 (46-116) U/L Serum Total Protein 5.6 L (6.4-8.2) gm/dL Albumin 2.2 L (3.4-5.0) g/dL 10/07/16 Range/Units 05:30 WBC (4.0-10.5) K/mm3 RBC (4.1-5.4) M/mm3 Hgb (12.0-16.0) gm/dl Hct (35-47) % MCV (78-100) fl MCH (26-32) pg MCHC (32-36) g/dl RDW (11.5-14.0) % Plt Count (150-450) K/mm3 MPV (6-9.5) fl Segmented Neutrophils (36.0-66.0) % Band Neutrophils (0.0-2.0) % Lymphocytes (Manual) (24-44) % Monocytes (Manual) (0.0-12.0) % Eosinophils (Manual) (0.00-3.0) % Basophils (Manual) (0.0-1.0) % Differential Comment Atypical Lymphocytes % Toxic Granulation Platelet Estimate (NORMAL) Anisocytosis Smear Path Review Sodium 141 (136-145) mEq/L Potassium 3.5 (3.5-5.1) mEq/L Chloride 106 (98-107) mEq/L Carbon Dioxide 27.7 (21-32) mEq/L Anion Gap 10.7 (5-15) MEQ/L BUN 7 L (9-20) mg/dL Creatinine 0.57 (0.55-1.30) mg/dl Estimated GFR > 60 ML/MIN Glucose 97 (70-110) MG/DL Calcium 8.3 L (8.5-10.1) mg/dL Total Bilirubin 0.9 (0.2-1.0) mg/dL AST 53 H (15-37) U/L ALT 19 (12-78) U/L Alkaline Phosphatase 111 (46-116) U/L Serum Total Protein 5.6 L (6.4-8.2) gm/dL Albumin 2.2 L (3.4-5.0) g/dL Multi-Disciplinary Progress Notes: Multi-Disciplinary Progress Notes 10/06/16 14:51 Physical Therapy Note by Jailene Wright PATIENT MOVED TO REVERSE ISOLATION STATUS TODAY DUE TO WBC COUNT OF 2.0. DID CONTINUE TO EXECUTE FUNCTIONAL TRANSFERS AND GAIT WITH ROLLER WALKER AND MIN /MOD ASSIST +1, PLUS CUES FOR ERECT POSTURE. NOTED IMPROVED ISOLATED MUSCLE STRENGTH IN DORSIFLEXORS TODAY. CONTINUES WITH POOR POSTURAL STRENGTH AND CORE STRENGTH. DYNAMIC BALANCE 3-/4...EMPHASIS ON POSTURAL STRENGTHENING TO FACILITATE BETTER STATIC AND DYNAMIC BALANCE. PATIENT STILL AT RISK FOR FALLS. WEAK INTRINSIC MUSCLES OF BOTH HANDS HINDER FINE MOTOR CONTROL. WEAK SOFTWARE DESIGN ANALYST STRENGTH ON WALKER. NEEDS INTERMITTANT WALKER MANAGEMENT HELP. CONTINUE THERAPY INTERVENTIONS TO MAXIMIZE POTENTIAL FOR RECOVERY OF PLOF: AT HOME WITH SPOUSE; INDEPENDENT ADL'S. Initialized on 10/06/16 14:51 - END OF NOTE 10/06/16 14:25 Nutrition Note by Sonam Tai F/u Note: Note pt with n/v x 3 days - taking zofran. Tolerating po; 25% intake. Labs 10/06 = BUN 5, Cr 0.54, alb 2.2, +fluid balance 920 mls. Goal met. Recommend to con't with current diet and goal. Will monitor and f/u prn. TGUILLE Srivastava Initialized on 10/06/16 14:25 - END OF NOTE 10/06/16 10:33 Case Management Note by Juanita Polo WBC 2.[address] GARCES AT THIS TIME. DR. GARCES STATES, "THAT IS FINE, JUST WATCH IT." NO ADDNL ORDERS AT THIS TIME. CALL TO DR. HERNANDEZ TO REPORT. Initialized on 10/06/16 10:33 - END OF NOTE 10/06/16 10:00 (created 10/06/16 15:35) Case Management Note by Juanita Polo DISCHARGE PLAN REVIEWED WITH PT'S . REPORTS THAT THEY CONTINUE TO PLAN TO TRANSITION TO [facility] FOR [facility] REHAB. PT CONTINUES WITH WEAKNESS, SLIGHT IMPROVEMENT. WBC 2.0 TODAY. PLACED IN PROTECTIVE ISOLATION. REQUIRES ASSISTANCE X 1 FOR ALL ADL'S. REQUIRES ASSIST X 1 FOR SIT TO STAND WITH WALKER. HAS TO ASSIST WITH ALL MEALS. REPORTS THAT PT IS STILL TOO WEAK TO HOLD HER GLASS, THEY TRIED TODAY AND SHE SPILLED. DID DISCUSS HOME HEALTH CARE SERVICES FOR ADDNL SUPPORT ON DISCHARGE, BUT AT THIS TIME PT/ BOTH AGREE THAT THIS WOULD NOT BE A SAFE TRANSITION AND THAT PT REQUIRES ADDNL REHAB PRIOR TO HOME WITH . WILL CONTINUE TO FOLLOW AND ASSESS FOR ALL DC NEEDS. Initialized on 10/06/16 15:35 - END OF NOTE Assessment/Plan (1) Muscular deconditioning Current Visit: Yes Status: Acute Assessment & Plan: She is improving with the walking. Some improvement with her fine motor strength but still needs assist to eat. Would benefit, in my opinion, from continued rehab. Code(s): R29.898 - OTH SYMPTOMS AND SIGNS INVOLVING THE MUSCULOSKELETAL SYSTEM (2) Leg edema Current Visit: Yes Status: Chronic Qualifiers: Laterality: bilateral Qualified Code(s): R60.0 - Localized edema Code(s): R60.0 - LOCALIZED EDEMA (3) Nausea and vomiting Current Visit: No Status: Chronic Qualifiers: Vomiting type: cyclical vomiting Assessment & Plan: May just need to continue regular zofran in the mornings particularly. Code(s): R11.2 - NAUSEA WITH VOMITING, UNSPECIFIED (4) Chronic neck pain Current Visit: No Status: Chronic Code(s): M54.2 - CERVICALGIA; G89.29 - OTHER CHRONIC PAIN (5) Total bilirubin, elevated Current Visit: Yes Status: Acute Assessment & Plan: recheck today Code(s): R17 - UNSPECIFIED JAUNDICE (6) Pancytopenia Current Visit: Yes Status: Acute Assessment & Plan: WBC count decreased. My staff spoke with Dr. Marte's staff yesterday about the low WBC count, he wanted to just observe. To 1.7 today - will notify him. Code(s): D61.818 - OTHER PANCYTOPENIA (7) DVT prophylaxis Current Visit: Yes Status: Acute Assessment & Plan: on lovenox 40mg SQ daily Code(s): [id number] - (8) Gallbladder cancer Current Visit: Yes Status: Chronic
[2016-10-07] MEDS: ENOXAPARIN SODIUM SQ SCH (09:20)
[2016-10-07] MEDS: Prozac 20 MG PO SCH (09:20)
[2016-10-07] MEDS: Catapres 0.1 MG PO SCH ×2 (09:20→22:17)
[2016-10-07] MEDS: DOLOPHINE 10MG Tablet PO SCH ×3 (09:20→22:17)
[2016-10-07] MEDS: Protonix 20MG Tablet PO SCH (09:21)
[2016-10-07] MEDS: Toprol Xl 100 MG PO SCH ×2 (09:21→22:18)
[2016-10-07] MEDS: Zanaflex 4 MG PO SCH ×3 (09:23→22:17)
[2016-10-07] MEDS: LACTULOSE 20 GM/30ML UD CUP PO SCH ×2 (09:23→22:17)
[2016-10-07] MEDS: OXYCODONE-ACETAMINOPHEN 10-325 PO PRN ×2 (09:57→19:37)
[2016-10-07] MEDS: Ambien 10 MG PO SCH (22:17)
[2016-10-07] MEDS: Colace 100 MG PO SCH (22:17)
[2016-10-08 06:02] LABS: ALBUMIN 2.2 g/dL (3.4-5.0); ALKALINE PHOSPHATASE 103 U/L (46-116); BILIRUBIN,TOTAL 0.8 mg/dL (0.2-1.0); BLOOD UREA NITROGEN 7 mg/dL (9-20); CHLORIDE 109 mEq/L (98-107); Carbon Dioxide 26.8 mEq/L (21-32); Glucose 100 MG/DL (70-110); Potassium 3.5 mEq/L (3.5-5.1); SGOT/AST 51 U/L (15-37); SGPT/ALT 16 U/L (12-78); SODIUM 142 mEq/L (136-145); Total Protein 5.4 gm/dL (6.4-8.2)
[2016-10-08] MEDS ORDERED: Zofran 4 MG/2 ML VIAL IV SCH (07:00)
[2016-10-08] MEDS: ZOFRAN ODT 4 MG PO PRN (07:34)
[2016-10-08] MEDS: Catapres 0.1 MG PO SCH ×2 (07:34→21:18)
[2016-10-08 08:04] VITALS: O2SAT 95
[2016-10-08] MEDS ORDERED: Phenergan 25 MG INJ IV ONE (09:03)
[2016-10-08] MEDS: DOLOPHINE 10MG Tablet PO SCH ×3 (09:04→21:18)
[2016-10-08] MEDS: Toprol Xl 100 MG PO SCH ×2 (09:58→21:18)
[2016-10-08] MEDS: Zanaflex 4 MG PO SCH ×3 (09:58→21:18)
[2016-10-08] MEDS: Prozac 20 MG PO SCH (09:59)
[2016-10-08] MEDS: LACTULOSE 20 GM/30ML UD CUP PO SCH ×2 (10:00→21:17)
[2016-10-08] MEDS: ENOXAPARIN SODIUM SQ SCH (10:00)
[2016-10-08] MEDS: Protonix 20MG Tablet PO SCH (10:43)
[2016-10-08] MEDS: Ambien 10 MG PO SCH (21:18)
[2016-10-08] MEDS: Colace 100 MG PO SCH (21:18)
[2016-10-09] MEDS ORDERED: Zofran 4 MG/2 ML VIAL IV SCH (04:30)
[2016-10-09 05:59] LABS: ANION GAP 11.1 MEQ/L (5-15); BLOOD UREA NITROGEN 8 mg/dL (9-20); CHLORIDE 109 mEq/L (98-107); Carbon Dioxide 26.6 mEq/L (21-32); Glucose 115 MG/DL (70-110); Potassium 3.5 mEq/L (3.5-5.1); SODIUM 143 mEq/L (136-145)
[2016-10-09 07:29] VITALS: BP 130/65; PULSE 57
--- NOTE | 2016-10-09 08:20 | PCM.NOTE ---
Date and Time: 10/09/16814 Subjective Assessment: Pt's hand strength has improved, per self report. Attila po well. Still has trouble lifting a glass with any appreciable amount of liquid in it. Now able to use a modification from OT in order to feed herself with a fork. - Review of Systems Constitutional: No Fever Objective Exam General Appearance: no apparent distress Neurologic Exam: alert, oriented x 3, cooperative Skin Exam: normal color, warm, dry Respiratory Exam: normal breath sounds, lungs clear, No crackles/rales, No rhonchi, No wheezing Cardiovascular Exam: regular rate/rhythm, normal heart sounds, No murmur OBJECTIVE DATA Vital Signs: Vital Signs - 24 hr Temp Pulse Resp BP Pulse Ox 10/09/16 07:28 97.6 F 57 L 17 130/65 95 10/08/16 20:00 98.0 F 62 16 114/59 95 Pain Assessment - Last Documented Pain Intensity 5 Pain Scale Used 0-10 Pain Scale Intake and Output: Intake & Output 10/06/16 10/07/16 10/08/16 10/09/16 11:59 11:59 11:59 11:59 Intake Total 920 640 480 460 Balance 920 640 480 460 Lab Results: Lab Results-Last 24 Hours 10/09/16 Range/Units 05:10 Sodium 143 (136-145) mEq/L Potassium 3.5 (3.5-5.1) mEq/L Chloride 109 H (98-107) mEq/L Carbon Dioxide 26.6 (21-32) mEq/L Anion Gap 11.1 (5-15) MEQ/L BUN 8 L (9-20) mg/dL Creatinine 0.73 (0.55-1.30) mg/dl Estimated GFR > 60 ML/MIN Glucose 115 H (70-110) MG/DL Calcium 8.2 L (8.5-10.1) mg/dL Assessment/Plan (1) Muscular deconditioning Current Visit: Yes Status: Acute Assessment & Plan: Improving. Continue working with PT/OT. Code(s): R29.898 - [facility] SYMPTOMS AND SIGNS INVOLVING THE MUSCULOSKELETAL SYSTEM (2) Leg edema Current Visit: Yes Status: Chronic Qualifiers: Laterality: bilateral Qualified Code(s): R60.0 - Localized edema Code(s): R60.0 - LOCALIZED EDEMA (3) Nausea and vomiting Current Visit: No Status: Chronic Qualifiers: Vomiting type: cyclical vomiting Assessment & Plan: Likely late effect of chemo. Pt did not complain this morning. Getting scheduled zofran early in the morning. Code(s): R11.2 - NAUSEA WITH VOMITING, UNSPECIFIED (4) Chronic neck pain Current Visit: No Status: Chronic Code(s): M54.2 - CERVICALGIA; G89.29 - OTHER CHRONIC PAIN (5) Total bilirubin, elevated Current Visit: Yes Status: Resolved Code(s): R17 - UNSPECIFIED JAUNDICE (6) Pancytopenia Current Visit: Yes Status: Acute Assessment & Plan: On Granix injections per oncology. First injection done 2 d ago; second injection to be done today (was scheduled for yesterday but apparently there was a billing issue). Recheck WBC today and in the morning. Code(s): D61.818 - OTHER PANCYTOPENIA (7) DVT prophylaxis Current Visit: Yes Status: Acute Assessment & Plan: On lovenox; may need to re-eval if platelets are lower. Code(s): LCZ5152 - (8) Gallbladder cancer Current Visit: Yes Status: Chronic
[2016-10-09 08:27] LABS: Mean Cell Volume 93.9 fl (78-100); Platelet Count 96 K/mm3 (150-450); Red Blood Count 3.59 M/mm3 (4.1-5.4); Red Cell Distribution Width 15.2 % (11.5-14.0); White Blood Count 5.8 K/mm3 (4.0-10.5)
[2016-10-09 08:29] LABS: Mean Corpuscular Hemoglobin 30.3 pg (26-32)
[2016-10-09] MEDS: Toprol Xl 100 MG PO SCH (08:44)
[2016-10-09] MEDS: Catapres 0.1 MG PO SCH (08:44)
[2016-10-09] MEDS: Prozac 20 MG PO SCH (08:44)
[2016-10-09] MEDS: DOLOPHINE 10MG Tablet PO SCH ×2 (08:44→15:03)
[2016-10-09] MEDS: Zanaflex 4 MG PO SCH ×2 (08:44→15:03)
[2016-10-09] MEDS: Protonix 20MG Tablet PO SCH (08:45)
[2016-10-09] MEDS: ENOXAPARIN SODIUM SQ SCH (08:45)
[2016-10-09] MEDS: LACTULOSE 20 GM/30ML UD CUP PO SCH (08:45)
[2016-10-09 10:12] LABS: ANISOCYTOSIS 1+; BAND 1 % (0.0-2.0); Eosinophil 2 % (0.00-3.0); Platelet Estimate DECREASED (NORMAL); Total Cells Counted 100
[2016-10-09] MEDS: OXYCODONE-ACETAMINOPHEN 10-325 PO PRN (12:39)
== END 2016-10-09 16:00 | DRG 948 ==
LOC: OBSVTOIN 17:54 → MED SURG 17:54
PROVIDERS: ADMIT Family Medicine; ATTEND Family Medicine
DX: R53.1 Weakness (principal); C23 Malignant neoplasm of gallbladder; D61.818 Other pancytopenia; R17 Unspecified jaundice; R29.898 Other symptoms and signs involving the musculoskeletal system; R60.0 Localized edema; R11.2 Nausea with vomiting, unspecified; M54.2 Cervicalgia; G89.29 Other chronic pain; F45.42 Pain disorder with related psychological factors; I10 Essential (primary) hypertension; N80.9 Endometriosis, unspecified; Z79.899 Other long term (current) drug therapy; T21.02XA Burn of unspecified degree of abdominal wall, initial encounter; T21.05XA Burn of unspecified degree of buttock, initial encounter; Y84.2 Radiological procedure and radiotherapy as the cause of abnormal reaction of the patient, or of later complication, without mention of misadventure at the time of the procedure; Y78.1 Therapeutic (nonsurgical) and rehabilitative radiological devices associated with adverse incidents
CPT/HCPCS: 36415; 80048; 80053; 82140; 82962; 83036; 85025; 85610; 94760; 97110; J1642; J1650; J2405; Q0162; A9270-GY

== ENCOUNTER 2016-11-23 11:15 | Inpatient (IN) | payer MEDICARE, OTHER ==
[2016-11-23] MEDS ORDERED: Sodium Chloride 0.9% 1000 ML 1,000 ML IV STA (11:19)
[2016-11-23] MEDS ORDERED: Rocephin 1000 MG INJ IV STA (11:19)
[2016-11-23] MEDS ORDERED: MORPHINE SULFATE 4 MG INJ IV ONE (11:21)
[2016-11-23] MEDS ORDERED: Sodium Chloride 0.9% 1000 ML 1,000 ML ONE ×3 (11:24→11:59)
[2016-11-23] MEDS ORDERED: FEVERALL 650 MG ONE (11:24)
[2016-11-23] MEDS ORDERED: MORPHINE SULFATE 4 MG INJ ONE ×4 (11:27→12:26)
[2016-11-23 11:55] LABS: Lactic Acid 9.6 (0.4-2.0)
[2016-11-23 11:55] LABS: Mean Cell Volume 87.4 fl (78-100); Mean Corpuscular Hemoglobin 29.8 pg (26-32); Mean Platelet Volume 9.7 fl (6-9.5); Platelet Count 316 K/mm3 (150-450); Red Cell Distribution Width 16.7 % (11.5-14.0); White Blood Count 17.7 K/mm3 (4.0-10.5)
[2016-11-23] MEDS ORDERED: Zofran 4 MG/2 ML VIAL ONE (11:59)
[2016-11-23 12:03] LABS: Collection Type CATH; Glucose COLOR INTERFERENCE mg/dL (NEGATIVE); Leukocyte Esterase COLOR INTERFERENCE (NEGATIVE)
[2016-11-23] MEDS ORDERED: Zofran 4 MG/2 ML VIAL IV ONE (12:03)
[2016-11-23 12:04] LABS: ADD URINE CULTURE? YES (NO); Bacteria FEW /HPF (NEGATIVE); Bilirubin COLOR INTERFERENCE (NEGATIVE); Blood COLOR INTERFERENCE Ery/ul (0-5); COMPLETE URINE MICROSCOPIC? YES; Epithelial Cells FEW /HPF (FEW); Hyaline Casts 25-50 /LPF (0-2); Mucus MANY /HPF (NEGATIVE)
[2016-11-23] MEDS ORDERED: Ativan 2 MG/1 ML VIAL ONE (12:05)
[2016-11-23] MEDS ORDERED: SUBLIMAZE 100 MCG/2 ML ONE (12:06)
[2016-11-23 12:13] LABS: BAND 4 % (0.0-2.0); Platelet Estimate NORMAL (NORMAL); Total Cells Counted 100; Toxic Granulation 2+
[2016-11-23] MEDS ORDERED: Zosyn 3.375GM/100 Ml D5W 3.375 GM/100 ML IVPB IV STA (12:13)
[2016-11-23 12:14] LABS: ANISOCYTOSIS 1+; Poikilocytosis 1+
[2016-11-23] MEDS: MORPHINE SULFATE 4 MG INJ IV ONE (12:14)
[2016-11-23] MEDS: SUBLIMAZE 100 MCG/2 ML IV ONE (12:14)
[2016-11-23] MEDS ORDERED: Zosyn 3.375GM/100 Ml D5W 3.375 GM/100 ML IVPB IV ONE (12:16)
[2016-11-23 12:18] LABS: ALBUMIN 2.5 g/dL (3.4-5.0); ANION GAP 22.3 MEQ/L (5-15); BILIRUBIN,TOTAL 2.5 mg/dL (0.2-1.0); Carbon Dioxide 16.9 mEq/L (21-32); Potassium 3.7 mEq/L (3.5-5.1)
[2016-11-23] MEDS ORDERED: MORPHINE SULFATE 4 MG INJ IM ONE (12:25)
--- NOTE | 2016-11-23 12:28 | ERPHSYRPT ---
- History of Present Illness Time Seen by Provider: 11/23/16 12:21 Source: family, EMS Exam Limitations: clinical condition Patient Subjective Stated Complaint: n/v/d for 2 days Triage Nursing Assessment: per ems--pt has been vomiting with diarrhea for 2 days. altered loc this am. on arrival, pt moaning and staring with no verbal communication. arms/legs mottled and cool. trunk warm and pink. ems stated pt pulled port needle out at detention. port to mid chest covered with bandaid. attempted to reaccess but would not draw blood. states port always draws blood. dr jewell ordered other iv access due to trauma to site. iv line and io accessed. pt moving all over in bed moaning. stated to this nurse that she walked to the bathroom last night at 2200 and she told him yesterday things werent right and she was ready for it to be over. called family. Physician History: 61-year-old female came to the emergency room with complaining of severe generalized pain, nausea, vomiting for last 1-2 days. Patient has a history of gallbladder cancer for which patient underwent chemotherapy and radiation therapy. Last chemotherapy was 6 weeks ago and afterwards patient got sick and was admitted at [facility] for 2 weeks. Chemotherapy was stopped afterwards. Patient started having severe nausea, vomiting for last 2 days was not able to keep any food or fluids down. Due to patient's clinical condition. Patient is not able to give any history so all the history was obtained from patients was also primary caregiver. Timing/Duration: day(s) (2-3 days) Associated Symptoms: muscle aches, nausea/vomiting, stiff neck, weakness International travel in last 2 weeks: No Allergies/Adverse Reactions: bee pollen Allergy (Verified 09/25/16 18:20) latex Allergy (Verified 09/25/16 18:20) Home Medications: Metoprolol Succinate 100 mg [Toprol Xl 100 MG] 100 mg PO BID 06/24/16 [ History] Zolpidem Tartrate [Ambien] 10 mg PO HS 06/24/16 [History] Tizanidine HCl 4 mg PO TID 06/26/16 [History] Clonidine HCl 0.1 mg PO BID 09/25/16 [History] Fluoxetine HCl 20 mg PO DAILY 09/25/16 [History] Ondansetron HCl [Zofran] 4 mg PO Q6HPRN PRN 09/25/16 [History] Hx Tetanus, Diphtheria Vaccination/Date Given: Yes Hx Influenza Vaccination/Date Given: No Hx Pneumococcal Vaccination/Date Given: No - Review of Systems Constitutional: Fever, Chills, Fatigue, Lethargy, Malaise, Weakness Eyes: No Symptoms Ears, Nose, & Throat: No Symptoms Respiratory: No Symptoms Cardiac: No Symptoms Abdominal/Gastrointestinal: No Symptoms Genitourinary Symptoms: No Symptoms Musculoskeletal: No Symptoms Skin: No Symptoms Neurological: Irritability - Past Medical History Pertinent Past Medical History: Yes Neurological History: No Pertinent History ENT History: No Pertinent History Cardiac History: Hypertension Respiratory History: No Pertinent History Endocrine Medical History: No Pertinent History Musculoskeletal History: No Pertinent History GI Medical History: Gallbladder Disease, Other History: No Pertinent History Psycho-Social History: No Pertinent History Female Reproductive Disorders: Endometriosis Other Medical History: chronic neck pain; gallbladder CA. all info from old record. post chemo,chronic pain,insomnia, electrolyte imbalance - Past Surgical History Past Surgical History: Yes Neuro Surgical History: No Pertinent History Cardiac: No Pertinent History Respiratory: No Pertinent History Gastrointestinal: Cholecystectomy, Other Genitourinary: No Pertinent History Musculoskeletal: Orthopedic Surgery Female Surgical History: Hysterectomy Other Surgical History: neck surgery x 2, Dx of gall bladder cancer May 2016 - Social History Smoking Status: Unknown if ever smoked Exposure to second hand smoke: No Drug Use: none Patient Lives Alone: No - Nursing Vital Signs Nursing Vital Signs: Initial Vital Signs Temperature 100.3 F Temperature Source Rectal Pulse Rate 89 Respiratory Rate 32 Blood Pressure [Left Arm] 193/86 - Physical Exam General Appearance: severe distress Eye Exam: pale conjunctivae ENT Exam: normal ENT inspection Neck Exam: trachea midline, No JVD Respiratory Exam: decreased air movement, prolonged expirations Cardiovascular/Chest Exam: tachycardia Gastrointestinal/Abdominal Exam: soft Neurologic Exam: disoriented, confusion, agitation Skin Exam: dry, mottled SpO2 Interpretation: normal SpO2: 100 Oxygen Delivery: Non-rebreather - Course Nursing assessment & vital signs reviewed: Yes EKG Interpreted by Me: Sinus Tach Ordered Tests: Active Orders 24 hr Category Date Time Status Truck Mechanic STAT Care 11/23/16 12:19 Active IV Insertion STAT Care 11/23/16 12:19 Active IV Insertion-2nd Peripheral STAT Care 11/23/16 12:19 Active Oxygen-ED Only NASAL CANNULA 3 lpm Care 11/23/16 11:19 Active Oxygen-ED Only NON-REBREATHER 100% Care 11/23/16 12:20 Active CHEST 1 VIEW (PORTABLE) Stat Exams 11/23/16 11:20 Ordered BLOOD CULTURE Stat Lab 11/23/16 11:50 Ordered CBC W DIFF Stat Lab 11/23/16 11:50 Completed CMP Stat Lab 11/23/16 11:50 Completed CULTURE,URINE Stat Lab 11/23/16 11:20 Received Lactic Acid Stat Lab 11/23/16 11:19 Results Manual Differential NC Stat Lab 11/23/16 11:50 Completed UA W/ MICROSCOPIC Stat Lab 11/23/16 11:20 Completed Transfer Order Routine Transfer 11/23/16 12:34 Ordered Medication Summary Generic Name Dose Route Start Last Admin Trade Name Freq PRN Reason Stop Dose Admin Ceftriaxone Sodium mg 11/23/16 11:19 Rocephin 1000 Mg Inj IV 11/23/16 11:20 STAT STA Piperacillin Sod/Tazobactam Sod 3.375 gm in 100 mls @ 200 mls/hr 11/23/16 12: 13 11/23/16 12:17 Zosyn 3.375gm/100 Ml D5w IV 11/23/16 12:42 200 mls/hr STAT STA Administration Discontinued Medications Generic Name Dose Route Start Last Admin Trade Name Freq PRN Reason Stop Dose Admin Acetaminophen Confirm 11/23/16 11:24 Feverall 650 Mg Administered 11/23/16 11:25 Dose 1,300 mg .ROUTE .STK-MED ONE Fentanyl Citrate 100 mcg 11/23/16 12:03 11/23/16 12:14 Sublimaze 100 Mcg/2 Ml IV 11/23/16 12:04 100 mcg STAT ONE Administration Fentanyl Citrate Confirm 11/23/16 12:06 Sublimaze 100 Mcg/2 Ml Administered 11/23/16 12:07 Dose 100 mcg .ROUTE .STK-MED ONE Sodium Chloride 1,000 mls @ 999 mls/hr 11/23/16 11:19 11/23/16 12:15 Sodium Chloride 0.9% 1000 Ml IV 11/23/16 12:19 999 mls/hr .Q1H1M STA Administration Sodium Chloride Confirm 11/23/16 11:24 Sodium Chloride 0.9% 1000 Ml Administered 11/23/16 11:25 Dose 1,000 mls @ ud .ROUTE .STK-MED ONE Sodium Chloride Confirm 11/23/16 11:51 Sodium Chloride 0.9% 1000 Ml Administered 11/23/16 11:52 Dose 1,000 mls @ ud .ROUTE .STK-MED ONE Sodium Chloride Confirm 11/23/16 11:59 Sodium Chloride 0.9% 1000 Ml Administered 11/23/16 12:00 Dose 1,000 mls @ ud .ROUTE .STK-MED ONE Piperacillin Sod/Tazobactam Sod Confirm 11/23/16 12:16 Zosyn 3.375gm/100 Ml D5w Administered 11/23/16 12:17 Dose 3.375 gm in 100 mls @ ud IV .STK-MED ONE Lorazepam Confirm 11/23/16 12:05 Ativan 2 Mg/1 Ml Vial Administered 11/23/16 12:06 Dose 2 mg .ROUTE .STK-MED ONE Morphine Sulfate 4 mg 11/23/16 11:21 11/23/16 12:15 Morphine Sulfate 4 Mg Inj IV 11/23/16 11:22 4 mg STAT ONE Administration Morphine Sulfate Confirm 11/23/16 11:27 Morphine Sulfate 4 Mg Inj Administered 11/23/16 11:28 Dose 4 mg .ROUTE .STK-MED ONE Morphine Sulfate Confirm 11/23/16 11:48 Morphine Sulfate 4 Mg Inj Administered 11/23/16 11:49 Dose 4 mg .ROUTE .STK-MED ONE Morphine Sulfate Confirm 11/23/16 11:59 Morphine Sulfate 4 Mg Inj Administered 11/23/16 12:00 Dose 4 mg .ROUTE .STK-MED ONE Morphine Sulfate 4 mg 11/23/16 12:03 11/23/16 12:14 Morphine Sulfate 4 Mg Inj IV 11/23/16 12:04 4 mg STAT ONE Administration Morphine Sulfate 4 mg 11/23/16 12:25 11/23/16 12:26 Morphine Sulfate 4 Mg Inj IM 11/23/16 12:26 4 mg STAT ONE Administration Morphine Sulfate Confirm 11/23/16 12:26 Morphine Sulfate 4 Mg Inj Administered 11/23/16 12:27 Dose 4 mg .ROUTE .STK-MED ONE Ondansetron HCl Confirm 11/23/16 11:59 Zofran 4 Mg/2 Ml Vial Administered 11/23/16 12:00 Dose 4 mg .ROUTE .STK-MED ONE Ondansetron HCl 4 mg 11/23/16 12:03 11/23/16 12:15 Zofran 4 Mg/2 Ml Vial IV 11/23/16 12:04 4 mg STAT ONE Administration Lab/Rad Data: Laboratory Result Diagrams 11/23/16 11:50 11/23/16 11:50 Laboratory Results 11/23/16 11/23/16 11/23/16 Range/Units 11:50 11:50 11:20 WBC 17.7 H (4.0-10.5) K/mm3 RBC 5.70 H (4.1-5.4) M/mm3 Hgb 17.0 H (12.0-16.0) gm/dl Hct 49.8 H (35-47) % MCV 87.4 (78-100) fl MCH 29.8 (26-32) pg MCHC 34.1 (32-36) g/dl RDW 16.7 H (11.5-14.0) % Plt Count 316 (150-450) K/mm3 MPV 9.7 H (6-9.5) fl Segmented Neutrophils 79 H (36.0-66.0) % Band Neutrophils 4 H (0.0-2.0) % Lymphocytes (Manual) 15 L (24-44) % Monocytes (Manual) 2 (0.0-12.0) % Differential Comment ABNORMAL Toxic Granulation 2+ Platelet Estimate NORMAL (NORMAL) Poikilocytosis 1+ Anisocytosis 1+ Sodium 141 (136-145) mEq/L Potassium 3.7 (3.5-5.1) mEq/L Chloride 105 (98-107) mEq/L Carbon Dioxide 16.9 L (21-32) mEq/L Anion Gap 22.3 H (5-15) MEQ/L BUN 26 H (9-20) mg/dL Creatinine 1.51 H (0.55-1.30) mg/dl Estimated GFR 37 ML/MIN Glucose 117 H (70-110) MG/DL Lactic Acid (0.4-2.0) Calcium 8.6 (8.5-10.1) mg/dL Total Bilirubin 2.50 H (0.2-1.0) mg/dL AST 131 H (15-37) U/L ALT 40 (12-78) U/L Alkaline Phosphatase 213 H (46-116) U/L Serum Total Protein 7.0 (6.4-8.2) gm/dL Albumin 2.5 L (3.4-5.0) g/dL Ur Collection Type CATH Urine Color BROWN (YELLOW) Urine Appearance SLIGHTLY CLOUDY (CLEAR) Urine pH 6.0 (5-6) Ur Specific Nursery 1.025 (1.005-1.025) Urine Protein COLOR INTERFERENCE (Negative) Urine Ketones COLOR INTERFERENCE (NEGATIVE) Urine Blood COLOR INTERFERENCE (0-5) Chuck/ul Urine Nitrite COLOR INTERFERENCE (NEGATIVE) Urine Bilirubin COLOR INTERFERENCE (NEGATIVE) Urine Urobilinogen COLOR INTERFERENCE (0-1) mg/dL Ur Leukocyte Esterase COLOR INTERFERENCE (NEGATIVE) Urine Microscopic RBC 2-5 (0-2) /HPF Urine Microscopic WBC 2-5 (0-5) /HPF Ur Epithelial Cells FEW (FEW) /HPF Urine Bacteria FEW (NEGATIVE) /HPF Hyaline Casts 25-50 (0-2) /LPF Urine Mucus MANY (NEGATIVE) /HPF Urine Glucose COLOR INTERFERENCE (NEGATIVE) mg/dL Specimen Received 11/23/16 1130 11/23/16 Range/Units 11:19 WBC (4.0-10.5) K/mm3 RBC (4.1-5.4) M/mm3 Hgb (12.0-16.0) gm/dl Hct (35-47) % MCV (78-100) fl MCH (26-32) pg MCHC (32-36) g/dl RDW (11.5-14.0) % Plt Count (150-450) K/mm3 MPV (6-9.5) fl Segmented Neutrophils (36.0-66.0) % Band Neutrophils (0.0-2.0) % Lymphocytes (Manual) (24-44) % Monocytes (Manual) (0.0-12.0) % Differential Comment Toxic Granulation Platelet Estimate (NORMAL) Poikilocytosis Anisocytosis Sodium (136-145) mEq/L Potassium (3.5-5.1) mEq/L Chloride (98-107) mEq/L Carbon Dioxide (21-32) mEq/L Anion Gap (5-15) MEQ/L BUN (9-20) mg/dL Creatinine (0.55-1.30) mg/dl Estimated GFR ML/MIN Glucose (70-110) MG/DL Lactic Acid 9.6 H (0.4-2.0) Calcium (8.5-10.1) mg/dL Total Bilirubin (0.2-1.0) mg/dL AST (15-37) U/L ALT (12-78) U/L Alkaline Phosphatase (46-116) U/L Serum Total Protein (6.4-8.2) gm/dL Albumin (3.4-5.0) g/dL Ur Collection Type Urine Color (YELLOW) Urine Appearance (CLEAR) Urine pH (5-6) Ur Specific Nursery (1.005-1.025) Urine Protein (Negative) Urine Ketones (NEGATIVE) Urine Blood (0-5) Chuck/ul Urine Nitrite (NEGATIVE) Urine Bilirubin (NEGATIVE) Urine Urobilinogen (0-1) mg/dL Ur Leukocyte Esterase (NEGATIVE) Urine Microscopic RBC (0-2) /HPF Urine Microscopic WBC (0-5) /HPF Ur Epithelial Cells (FEW) /HPF Urine Bacteria (NEGATIVE) /HPF Hyaline Casts (0-2) /LPF Urine Mucus (NEGATIVE) /HPF Urine Glucose (NEGATIVE) mg/dL Specimen Received - Progress Progress: unchanged Progress Note: 11/23/16 12:25 Assessment as patient regarding emergency room immediately. IV fluid was started. Initially Port-A-Cath was accessed, but unable to access Port-A-Cath. Intraosseous IV access was obtained. Afterwards two more peripheral IV access was also obtained. Patient was in backside and he told that patient does not want to be resuscitated or intubated but wants to be comfortable. IV morphine and IV Ativan given for pain and restlessness. Afterwards, IV fentanyl was also given. Normal saline a as fluid bolus 3 L infused. Counseled pt/family regarding: lab results, diagnosis, need for follow-up, rad results - Departure Time of Disposition: 12:38 Departure Disposition: In-patient Admission Clinical Impression: Sepsis associated hypotension Condition: Serious Critical Care Time: Yes Critical Care Time(excluding separately billable procedures): 30-74 minutes Referrals: MANDI HERNANDEZ [Primary Care Provider] -
[2016-11-23] MEDS ORDERED: MORPHINE SULFATE 4 MG INJ IV PRN (13:05)
[2016-11-23] MEDS ORDERED: TYLENOL 325 MG PO PRN (13:05)
[2016-11-23] MEDS ORDERED: Lasix 20 MG/2 ML ONE (17:07)
[2016-11-23] MEDS: Morphine PCA 1 MG/ML 30 ML IV PRN (17:15)
[2016-11-23] MEDS: FEVERALL 650 MG PR PRN (20:10)
--- NOTE | 2016-11-23 20:53 | XRAY ---
Indication: Confusion. Gallbladder cancer. Comparison: May 20, 2016. Portable chest markedly underinflated accentuating the cardiopulmonary structures. Stable left base infiltrate/atelectasis. Right lung clear. Heart still within normal limits for AP portable technique. Stable left hilar calcified nodes. New left-sided Port-A-Cath. Bony thorax intact again with osteopenia, degenerative changes, and lower cervical fusion surgery. Impression: 1. Underinflated chest with left base infiltrate/atelectasis. Correlate clinically. 2. New left Port-A-Cath without complications.
[2016-11-23] MEDS: Zosyn 3.375GM/100 Ml D5W 3.375 GM/100 ML IVPB IV SCH (21:36)
[2016-11-24] MEDS: Zosyn 3.375GM/100 Ml D5W 3.375 GM/100 ML IVPB IV SCH ×2 (04:25→13:48)
[2016-11-24 05:34] LABS: Lactic Acid 7.9 (0.4-2.0)
[2016-11-24 06:25] LABS: Mean Cell Volume 87.8 fl (78-100); Mean Platelet Volume 10.2 fl (6-9.5); Platelet Count 260 K/mm3 (150-450); Red Blood Count 4.84 M/mm3 (4.1-5.4); Red Cell Distribution Width 16.3 % (11.5-14.0); White Blood Count 15.2 K/mm3 (4.0-10.5)
[2016-11-24 06:39] LABS: ALBUMIN 2.3 g/dL (3.4-5.0); BILIRUBIN,TOTAL 2.5 mg/dL (0.2-1.0); Total Protein 6.2 gm/dL (6.4-8.2)
[2016-11-24 06:46] LABS: BAND 2 % (0.0-2.0); Total Cells Counted 100
[2016-11-24 06:47] LABS: ANISOCYTOSIS 1+; Platelet Estimate NORMAL (NORMAL); Poikilocytosis 1+
[2016-11-24 06:50] LABS: Carbon Dioxide 14.5 mEq/L (21-32)
[2016-11-24] MEDS: Morphine PCA 1 MG/ML 30 ML IV PRN ×4 (07:22→16:58)
--- NOTE | 2016-11-24 09:07 | PCM.HP ---
History of Present Illness - Chief Complaint Chief Complaint: sepsis History of Present Illness: is a 61 year old female with PMHx gallbladder cancer s/p chemotherapy and radiation who came to the ER septic after 2d of vomiting and diarrhea. She has had chronic vomiting after the chemotherapy. Her functional status had declined and she was admitted to [facility] for swing bed then transferred out to the residential. She was conversant at the residential until she came to ER yesterday, then was not responsive. Her notes she did not want to be resuscitated or even hooked up to IVs for a long period of time. She seemed to be in pain at different points throughout the night; she is on a morphine TWISTER IN with no basal dose ( has been hitting the button for her). Her tachypnea has worsened in the last 2 hours. Lactate was elevated on admission > 9; was down to 6 intially but now back up to 7.9. understands that her prognosis is extremely poor. I did offer hospice and to send the pt home on comfort care but he would prefer to stay here. - Review of Systems All Other Systems: Unable due to condition Medications & Allergies Home Medications: Home Medication List Metoprolol Succinate 100 mg [Toprol Xl 100 MG] 100 mg PO BID 06/24/16 [ History Confirmed 11/23/16] Zolpidem Tartrate [Ambien] 10 mg PO HS 06/24/16 [History Confirmed 11/23/16] Tizanidine HCl 4 mg PO TID 06/26/16 [History Confirmed 11/23/16] Clonidine HCl 0.1 mg PO BID 09/25/16 [History Confirmed 11/23/16] Fluoxetine HCl 20 mg PO DAILY 09/25/16 [History Confirmed 11/23/16] Ondansetron HCl [Zofran] 4 mg PO Q8H PRN 09/25/16 [History Confirmed 11/23/16] Methadone HCl 10 mg [DOLOPHINE 10MG Tablet] 10 mg PO TID #21 tab 10/09/16 [Rx Confirmed 11/23/16] Acetaminophen 325 mg [Tylenol 325 mg] 650 mg PO Q6HPRN PRN 11/23/16 [ History Confirmed 11/23/16] Calcium Carbonate/Vitamin D3 [Calcium 600 with Vit D Chew Tb] 1 tab PO BID 11/23 [History Confirmed 11/23/16] Dronabinol [Marinol] 2.5 mg PO BID 11/23/16 [History Confirmed 11/23/16] Oxycodone / APAP 10/325 mg [Oxycodone-Acetaminophen 10-325] 1 tab PO QIDPRN PRN 11/23/16 [History Confirmed 11/23/16] Promethazine HCl 25 mg [Phenergan 25 mg] 25 mg PO Q6HPRN PRN 11/23/16 [ History Confirmed 11/23/16] Allergies/Adverse Reactions: Allergies Allergy/AdvReac Type Severity Reaction Status Date / Time bee pollen Allergy Verified 09/25/16 18:20 latex Allergy Verified 09/25/16 18:20 - Past Medical History Past Medical History: Yes Neurological History: No Pertinent History ENT History: No Pertinent History Cardiac History: Hypertension Respiratory History: No Pertinent History Endocrine Medical History: No Pertinent History Musculoskelatal History: No Pertinent History GI Medical History: Gallbladder Disease, Other History: No Pertinent History Pyscho-Social History: No Pertinent History Reproductive Disorders: Endometriosis Comment: chronic neck pain; gallbladder CA. all info from old record. post chemo,chronic pain,insomnia, electrolyte imbalance - Female History Are you now?: No - Past Surgical History Past Surgical History: Yes Neuro Surgical History: No Pertinent History Cardiac History: No Pertinent History Respiratory Surgery: No Pertinent History GI Surgical History: Cholecystectomy, Other Genitourinary Surgical Hx: No Pertinent History Musculskeletal Surgical Hx: Orthopedic Surgery Female Surgical History: Hysterectomy Other Surgical History: neck surgery x 2, Dx of gall bladder cancer May 2016 - Social History Smoking Status: Never smoker Exposure to second hand smoke: No Alcohol: None Drug Use: none - Physical Exam Vital Signs: Vital Signs - 24 hr Temp Pulse Resp BP Pulse Ox 11/24/16 08:32 102 H 34 H 93 L 11/24/16 07:37 96 11/24/16 07:00 100.2 F 107 H 32 H 180/80 94 L 11/24/16 04:00 35 H 11/24/16 03:00 99.5 F 109 H 33 H 180/96 94 L 11/24/16 00:00 28 H 11/23/16 23:00 102 H 20 166/133 95 11/23/16 21:15 96 11/23/16 20:00 26 H 11/23/16 19:58 99.7 F 99 H 25 H 192/108 96 11/23/16 19:50 97 11/23/16 17:51 100 11/23/16 17:50 100 H 26 H 201/98 98 11/23/16 17:15 99 11/23/16 17:00 91 H 26 H 216/102 99 11/23/16 16:00 26 H 11/23/16 15:34 98.5 F 87 26 H 211/108 100 11/23/16 14:30 90 24 189/96 99 11/23/16 13:35 91 H 22 189/91 99 11/23/16 13:05 98.0 F 99 H 225/96 11/23/16 12:45 98.0 F 99 H 32 H 225/96 100 11/23/16 12:39 100 11/23/16 12:36 89 32 H 193/86 100 11/23/16 12:17 94 H 28 H 179/91 100 11/23/16 11:16 100.3 F 107 H 44 H 56/41 100 11/23/16 11:15 100 Oxygen-Last 24 hours O2 Percentage 100% O2 Percentage 100% O2 Percentage 100% O2 Percentage 100% O2 Percentage 100% O2 Percentage 100% General Appearance: other (unresponsive, on oxygen mask, tachypneic, occasionally moaning) Eye Exam: other (eyelids partially open bilaterally) Ears, Nose, Throat Exam: other (pooling of small amount bright red blood at the L corner of her mouth) Neck Exam: normal inspection Respiratory Exam: normal breath sounds, other (tachypneic; Kussmaul breathing) Cardiovascular Exam: normal heart sounds, tachycardia, No murmur Gastrointestinal/Abdomen Exam: soft, No mass Extremity Exam: other (pretibial 1+ edema bilat. livedo reticularis on R knee. L leg with IO intact just distal to the knee) Skin Exam: warm, dry Results - Labs Lab/Micro Results: Lab Results-Last 24 Hours 11/23/16 11/24/16 11/24/16 Range/Units 13:55 05:29 05:30 WBC 15.2 H (4.0-10.5) K/mm3 RBC 4.84 (4.1-5.4) M/mm3 Hgb 14.5 (12.0-16.0) gm/dl Hct 42.5 (35-47) % MCV 87.8 (78-100) fl MCH 30.0 (26-32) pg MCHC 34.1 (32-36) g/dl RDW 16.3 H (11.5-14.0) % Plt Count 260 (150-450) K/mm3 MPV 10.2 H (6-9.5) fl Segmented Neutrophils 85 H (36.0-66.0) % Band Neutrophils 2 (0.0-2.0) % Lymphocytes (Manual) 9 L (24-44) % Monocytes (Manual) 4 (0.0-12.0) % Differential Comment ABNORMAL Platelet Estimate NORMAL (NORMAL) Poikilocytosis 1+ Anisocytosis 1+ Sodium (136-145) mEq/L Potassium (3.5-5.1) mEq/L Chloride (98-107) mEq/L Carbon Dioxide (21-32) mEq/L Anion Gap (5-15) MEQ/L BUN (9-20) mg/dL Creatinine (0.55-1.30) mg/dl Estimated GFR ML/MIN Glucose (70-110) MG/DL Lactic Acid 6.5 H 7.9 H (0.4-2.0) Calcium (8.5-10.1) mg/dL Total Bilirubin (0.2-1.0) mg/dL AST (15-37) U/L ALT (12-78) U/L Alkaline Phosphatase (46-116) U/L Serum Total Protein (6.4-8.2) gm/dL Albumin (3.4-5.0) g/dL 11/24/16 Range/Units 05:30 WBC (4.0-10.5) K/mm3 RBC (4.1-5.4) M/mm3 Hgb (12.0-16.0) gm/dl Hct (35-47) % MCV (78-100) fl MCH (26-32) pg MCHC (32-36) g/dl RDW (11.5-14.0) % Plt Count (150-450) K/mm3 MPV (6-9.5) fl Segmented Neutrophils (36.0-66.0) % Band Neutrophils (0.0-2.0) % Lymphocytes (Manual) (24-44) % Monocytes (Manual) (0.0-12.0) % Differential Comment Platelet Estimate (NORMAL) Poikilocytosis Anisocytosis Sodium 143 (136-145) mEq/L Potassium 4.0 (3.5-5.1) mEq/L Chloride 108 H (98-107) mEq/L Carbon Dioxide 14.5 L* (21-32) mEq/L Anion Gap 25.0 H (5-15) MEQ/L BUN 34 H (9-20) mg/dL Creatinine 1.62 H (0.55-1.30) mg/dl Estimated GFR 34 ML/MIN Glucose 66 L (70-110) MG/DL Lactic Acid (0.4-2.0) Calcium 7.7 L (8.5-10.1) mg/dL Total Bilirubin 2.50 H (0.2-1.0) mg/dL AST 159 H (15-37) U/L ALT 27 (12-78) U/L Alkaline Phosphatase 175 H (46-116) U/L Serum Total Protein 6.2 L (6.4-8.2) gm/dL Albumin 2.3 L (3.4-5.0) g/dL - Other Procedures and Tests Respiratory Therapy 11/23/16 20:34 Oxygen OXYMASK-LPM 4% Assessment/Plan (1) Comfort measures only status Current Visit: Yes Status: Acute Assessment & Plan: will d/c telemetry and IO; keep rivera for comfort, O2 for comfort. Change morphine to basal rate of 2mg/hr (has gotten an average of 2.25 mg/hr total overnight) with option to push button for 1mg every 20min. Expect pt to within 24 hours. Will stop lab draws. Decrease IV fluids to 50 cc/hr. Code(s): Z51.5 - ENCOUNTER FOR PALLIATIVE CARE (2) Sepsis Current Visit: Yes Status: Acute Qualifiers: Sepsis type: sepsis due to unspecified organism Qualified Code(s): A41.9 - Sepsis, unspecified organism Assessment & Plan: Will stop the IV levaquin as we will not be checking renal status anymore. Continue IV zosyn for now. (3) Gallbladder cancer Current Visit: No Status: Chronic Assessment & Plan: Pt in fairly poor health initially s/p treatment for the cancer.
[2016-11-24] MEDS ORDERED: PROTONIX 40 MG IV IV SCH (10:00)
[2016-11-24] MEDS ORDERED: Levofloxacin 500MG/100ML D5W 500 MG/100 ML BAG IV SCH (10:00)
[2016-11-24] MEDS: FEVERALL 650 MG PR PRN ×2 (13:07→16:15)
[2016-11-24] MEDS: Ativan 2 MG/1 ML VIAL IV PRN ×5 (13:48→16:35)
[2016-11-24] MEDS ORDERED: Sodium Chloride 0.9% 1000 ML 1,000 ML IV SCH (14:00)
[2016-11-24] MEDS ORDERED: Ativan 2 MG/1 ML VIAL IV SCH (15:45)
[2016-11-24] MEDS ORDERED: ATROPINE SULFATE EYE DROPS PO PRN (15:46)
[2016-11-24] MEDS: Ativan 2 MG/1 ML VIAL IV SCH ×2 (16:00→17:48)
[2016-11-24 17:05] VITALS: BP 132/58; PULSE 101; O2SAT 90
[2016-11-24] MEDS ORDERED: Lasix 20 MG/2 ML IV ONE (17:30)
== END 2016-11-24 17:52 | disposition expired | DRG 435 ==
LOC: ED 11:15 → MED SURG 12:57
PROVIDERS: ADMIT Family Medicine; ATTEND Family Medicine
DX: C23 Malignant neoplasm of gallbladder (principal); A41.9 Sepsis, unspecified organism; Z51.5 Encounter for palliative care; I10 Essential (primary) hypertension; N80.9 Endometriosis, unspecified; M54.2 Cervicalgia; G89.29 Other chronic pain; F45.42 Pain disorder with related psychological factors; G47.00 Insomnia, unspecified; Z79.899 Other long term (current) drug therapy
CPT/HCPCS: 36000; 36415; 36680; 51702; 71010; 80053; 81000; 83605; 84134; 85025; 87040; 87086; 93005; 93041; 94760; 96360; 96361; 96365; 99291; 99292; J1940; J2060; J2270; J2405; J2543; J3010; A9270-GY